=== PATIENT | male | born 1960 | race Caucasian/White ===

== ENCOUNTER 2016-09-22 07:12 | Day surgery (SDC) | payer BC ==
[2016-09-07 12:46] LABS: HEMATOCRIT 48.3 % (37.9-51.0); HEMOGLOBIN 16.8 g/dL (13.5-17.0); HGB HCT DIFFERENCE 2.1; MEAN CORPUSCULAR HEMOGLOBIN 31.3 pg (27.0-33.4); MEAN CORPUSCULAR HGB CONC 34.7 g/dL (32.0-36.0); MEAN CORPUSCULAR VOLUME 90 fl (80-97); RED BLOOD COUNT 5.36 10^6/uL (4.35-5.55); RED CELL DISTRIBUTION WIDTH 13.6 % (11.5-14.0); WHITE BLOOD COUNT 7.3 10^3/uL (4.0-10.5)
[2016-09-22] MEDS ORDERED: GLYCOPYRROLATE INJ 0.4 MG/2 ML VIAL ONE (07:18)
[2016-09-22] MEDS ORDERED: ONDANSETRON HCL INJ/PF 4 MG/2 ML SDV ONE (07:18)
[2016-09-22] MEDS ORDERED: FLUMAZENIL INJ 0.5 MG/5 ML VIAL IV ONE (07:19)
[2016-09-22] MEDS ORDERED: NALOXONE HCL INJ/PF 0.4 MG/1 ML SDV ONE (07:19)
[2016-09-22] MEDS ORDERED: GLUCAGON,HUMAN RECOMB 1 MG INJ ONE (07:19)
[2016-09-22] MEDS ORDERED: EPINEPHRINE INJ 1 MG/10 ML DISP.SYRIN ONE (07:19)
[2016-09-22] MEDS: MIDAZOLAM 2 MG/2 ML INJ ONE ×3 (08:01→08:09)
[2016-09-22] MEDS: FENTANYL CITRATE INJ/PF 100 MCG/2 ML AMPUL ONE ×2 (08:03→08:07)
--- NOTE | 2016-09-22 08:51 | Operative Report ---
Operative Report DATE OF SURGERY: 09/22/16 PREOPERATIVE DIAGNOSIS: 1. Personal history of colon polyps. 2. Family history of colon carcinoma POSTOPERATIVE DIAGNOSIS: Same with 1. Scattered diverticulosis. 2. Left colon pedunculated polyp. 3. Cecal lesion of undetermined significance OPERATION: 1. Total colonoscopy to cecum. 2. cold forceps biopsy of cecal lesion. 3. Left colon polypectomy SURGEON: ALECIA CANDELARIO ANESTHESIA: Moderate Sedation TISSUE REMOVED OR ALTERED: Polyp and mucosal biopsy COMPLICATIONS: None ESTIMATED BLOOD LOSS: none INTRAOPERATIVE FINDINGS: See below PROCEDURE: Obtaining informed consent the patient was taken from the preoperative holding area to the main endoscopy suite where monitoring devices were attached to the patient. Plan and surgical timeout were conducted The patient was placed in the left lateral decubitus position with knees to chest. A perianal examination was performed. There was no visible or palpable anorectal pathology. Sphincter tone was felt to be normal. The flexible pediatric colonoscope was advanced through the anal rectal canal, all the way to the cecum. Utilization of the cecum was achieved and the ileocecal valve, the appendiceal orifice and transillumination of the anterior abdominal wall. This was an excellent study on the well-prepped bowel. At the appendiceal orifice was an area of mucosal abnormality or cold this area possibly 1 cm to 2 cm in size was consistent with hypertrophied mucosa ; there was no evidence of ulcer, bleeding or pedunculated tissue. We did take a single cold forceps biopsy of the area. Photos were taken. The colonoscope was withdrawn slowly and methodically checked and the mucosa carefully. There was no evidence of tumor, stricture, bleeding ; there was approximately 1.2 cm polyp in the left colon, thin stalk, pedunculated; this polyp was removed using an air technique, medium heat strength. The specimen was retrieved by extracting the scope with the specimen on its tip. The specimen was labeled as left colon lesion and sent to pathology as same. We reinserted the pediatric colonoscope all the way to this point and found no evidence of bleeding. There were scattered diverticulosis of the right and left colon. The scope was slowly withdrawn through the anal rectal canal. It was retroflexed and minimal internal hemorrhoids visualized. Complete visualization of the rectum was achieved with photodocumentation. The scope was withdrawn to the patient's anus. The patient tolerated the procedure well and was taken to the recovery area in stable condition. We'll await the final pathology report; patient will likely be a candidate for surveillance colonoscopy in 3 years.
--- NOTE | 2016-09-22 08:52 | PDOC DISCHARGE SUMMARY ---
Discharge Summary (SDC) - Discharge Final Diagnosis: 1. Colon polyp left side 2. Cecal lesion of undetermined significance 3. Status post complete colonoscopy with polypectomy and mucosal biopsy. Date of Surgery: 09/22/16 Discharge Date: 09/22/16 Condition: Good Treatment or Instructions: [facility] [address] [address] POST ENDOSCOPY DISCHARGE INSTRUCTIONS 1. Diet: Start clear liquids that a regular diet as tolerated. 2. Resume all preoperative medications. All oral anticoagulants and aspirins can be resumed 24 hours after procedure. 3. If a polypectomy was performed some bleeding per rectum may occur. This should stop within 3 days. If not, please contact the office. 4. If you had a colonoscopy you may experience some bloating and delayed return of normal bowel function for several days, your regular bowel movement pattern should resume within a week. 5. Please contact [facility] at to make an appointment with Dr. Rodrigues for 1 to 3 weeks following procedure. 6. If you have any questions or concerns regarding your care,treatment plan or follow up, please contact our office. 7. Per clinical guidelines we recommend you undergo a repeat colonoscopy in 3 _ years. Discharge Diet: As Tolerated Discharge Activity: Activity As Tolerated Home Care Assistance: None Needed Report the Following to Your Physician Immediately: Shortness of Breath, Increase in Pain, Fever over 101 Degrees
[2016-09-22 10:48] VITALS: BP 111/76
== END 2016-09-22 10:00 | disposition home or self-care (01) ==
LOC: END 07:12
PROVIDERS: ATTEND Surgery
PROC: 0DBG8ZX Excision of Left Large Intestine, Via Natural or Artificial Opening Endoscopic, Diagnostic (ICD-10-PCS; principal; 2016-09-22 07:30)
PROC: 0DBH8ZX Excision of Cecum, Via Natural or Artificial Opening Endoscopic, Diagnostic (ICD-10-PCS; 2016-09-22 07:30)
DX: K63.5 Polyp of colon (principal); K57.30 Diverticulosis of large intestine without perforation or abscess without bleeding; K62.5 Hemorrhage of anus and rectum; E78.00 Pure hypercholesterolemia, unspecified; K76.0 Fatty (change of) liver, not elsewhere classified; G40.909 Epilepsy, unspecified, not intractable, without status epilepticus; Z88.0 Allergy status to penicillin; Z79.899 Other long term (current) drug therapy; Z87.11 Personal history of peptic ulcer disease; Z80.0 Family history of malignant neoplasm of digestive organs
CPT/HCPCS: 45380; 45385; 36415; 85027; 88305 ×2; J2250; J3010; J0171; J1610; J2310; J2405; J3490

== ENCOUNTER → 2016-10-24 | Outpatient (CLI) | payer BC | LOC: RAD 18:40 | PROVIDERS: ATTEND Specialist | DX: R56.9 Unspecified convulsions (principal) | CPT/HCPCS: 70553; A9577 ==

== ENCOUNTER 2016-10-27 07:13 | Day surgery (SDC) | payer BC ==
[2016-10-27] MEDS ORDERED: ONDANSETRON HCL INJ/PF 4 MG/2 ML SDV ONE (07:21)
[2016-10-27] MEDS ORDERED: GLYCOPYRROLATE INJ 0.4 MG/2 ML VIAL ONE (07:21)
[2016-10-27] MEDS ORDERED: FENTANYL CITRATE INJ/PF 100 MCG/2 ML AMPUL ONE (07:22)
[2016-10-27] MEDS ORDERED: GLUCAGON,HUMAN RECOMB 1 MG INJ ONE (07:22)
[2016-10-27] MEDS ORDERED: FLUMAZENIL INJ 0.5 MG/5 ML VIAL IV ONE (07:22)
[2016-10-27] MEDS ORDERED: EPINEPHRINE INJ 1 MG/10 ML DISP.SYRIN ONE (07:22)
[2016-10-27] MEDS ORDERED: NALOXONE HCL INJ/PF 0.4 MG/1 ML SDV ONE (07:22)
[2016-10-27] MEDS: MIDAZOLAM 2 MG/2 ML INJ ONE ×3 (07:28→07:34)
--- NOTE | 2016-10-27 08:00 | PDOC DISCHARGE SUMMARY ---
Discharge Summary (SDC) - Discharge Final Diagnosis: gastritis, gastric polyp Date of Surgery: 10/27/16 Discharge Date: 10/27/16 Condition: Good Treatment or Instructions: [facility] [place] [address] POST ENDOSCOPY DISCHARGE INSTRUCTIONS 1. Diet: Start clear liquids that a regular diet as tolerated. 2. Resume all preoperative medications. All oral anticoagulants and aspirins can be resumed 24 hours after procedure. 3. If a polypectomy was performed some bleeding per rectum may occur. This should stop within 3 days. If not, please contact the office. 4. If you had a colonoscopy you may experience some bloating and delayed return of normal bowel function for several days, your regular bowel movement pattern should resume within a week. 5. Please contact [facility] at to make an appointment with Dr. Rodrigues for 1 to 3 weeks following procedure. 6. If you have any questions or concerns regarding your care,treatment plan or follow up, please contact our office. Discharge Diet: As Tolerated Discharge Activity: Activity As Tolerated Home Care Assistance: None Needed Report the Following to Your Physician Immediately: Shortness of Breath, Increase in Pain, Unusual Bleeding
[2016-10-27 09:06] VITALS: BP 118/75
--- NOTE | 2016-10-27 09:28 | OPERATIVE REPORT E ---
Operative Report NAME: GERMAN LÓPEZ : 1960 AGE: 56Y DATE OF SURGERY: 10/27/2016 ROOM: PREOPERATIVE DIAGNOSES: 1. BLOATING. 2. ABDOMINAL PAIN. 3. HISTORY OF PEPTIC ULCER DISEASE. POSTOPERATIVE DIAGNOSES: 1. BLOATING. 2. ABDOMINAL PAIN. 3. HISTORY OF PEPTIC ULCER DISEASE. 4. DIFFUSE GASTRITIS AND GASTRIC POLYP. OPERATION: 1. Esophagogastroduodenoscopy. 2. Gastric polypectomy. 3. Greater curvature of the stomach mucosal biopsy. SURGEON: ALECIA CANDELARIO M.D. ANESTHESIA: Conscious sedation. COMPLICATIONS: None. ESTIMATED BLOOD LOSS: Scant. DRAINS: None. TISSUE REMOVED OR ALTERED: One polyp and one mucosal biopsy. FINDINGS: See below. SUMMARY OF PROCEDURE: The patient was taken from the preoperative area to the main endoscopy suite, where monitoring devices were attached. Conscious sedation was induced using fentanyl and Versed. Surgical plan and surgical time-out were conducted. Oral mouthpiece was inserted, and the flexible adult upper endoscope was advanced into the oropharynx, down the esophagus, through the stomach, into the duodenum. This was well tolerated by the patient. The duodenum was essentially unremarkable. There was no evidence of tumor, polyp, bleeding or stricture. The scope was brought back through the pylorus. The stomach was significant for diffuse gastritis proximally and distally particularly in the antrum. Photos were taken. One biopsy was taken of the greater curve of the stomach and sent for CLOtesting. On the lesser curvature was a small gastric polyp which was photographed and biopsied using the cold forceps device. Specimen was sent to pathology as gastric polyp. Bleeding was minimal. The scope was brought back through the patient's GE junction. The Z-line was at approximately 40 cm from the incisors. There was no evidence of stricture. The scope was brought through the length of the esophagus. There was no evidence of varices or ulceration. The upper esophagus was grossly unremarkable. The hypopharynx showed no pathology. The scope was withdrawn from the patient's oropharynx. He tolerated the procedure well. DICTATING PHYSICIAN: ALECIA CANDELARIO M.D. [id number] PHY#: [id number] ID: [id number] JOB#: [id number] ACCT: [id number] cc:ALECIA CANDELARIO M.D. >
== END 2016-10-27 09:00 | disposition home or self-care (01) ==
LOC: END 07:13
PROVIDERS: ATTEND Surgery
PROC: 0DB68ZX Excision of Stomach, Via Natural or Artificial Opening Endoscopic, Diagnostic (ICD-10-PCS; principal; 2016-10-27 08:15)
DX: K29.50 Unspecified chronic gastritis without bleeding (principal); K31.7 Polyp of stomach and duodenum; Z87.11 Personal history of peptic ulcer disease; Z88.0 Allergy status to penicillin; Z86.010 Personal history of colon polyps; Z80.0 Family history of malignant neoplasm of digestive organs; G47.30 Sleep apnea, unspecified; K62.5 Hemorrhage of anus and rectum; E78.00 Pure hypercholesterolemia, unspecified; K76.0 Fatty (change of) liver, not elsewhere classified; Z79.899 Other long term (current) drug therapy
CPT/HCPCS: 43239; 88342 ×2; 88305 ×2; J2250; J3010; J0171; J1610; J2310; J2405; J3490

== ENCOUNTER → 2018-06-15 | Outpatient (CLI) | payer BC ==
--- NOTE | 2018-06-15 16:21 | XCELERA REPORT ---
[address] [facility] [address] Lower Extremity Venous Evaluation Procedure: Color flow and duplex imaging bilaterally of the veins of the lower extremities as well as the Common Femoral veins. Right Sided Venous Evaluation Normal vessel filling wall to wall, compression and augmentation as well as Colour flow down to the infrageniculate veins. Left Sided Venous Evaluation Normal vessel filling wall to wall, compression and augmentation as well as Colour flow down to the infrageniculate veins. Interpretation Summary No duplex evidence of DVT or obstruction in the bilateral lower extremities. Name: GERMAN LÓPEZ Age: 58 yrs Gender: Male : 1960 Patient Status: Outpatient Patient Location: Study Date: 06/15/2018 09:19 AM Reason For Study: VARICOSE VEINS Ordering Physician: DECLAN WALLS Performed By: Selina Smith : DECLAN WALLS > Marvin Abdi
== END ==
LOC: SP 08:37
PROVIDERS: ATTEND Internal Medicine
DX: M79.662 Pain in left lower leg (principal); M79.661 Pain in right lower leg; M79.89 Other specified soft tissue disorders
CPT/HCPCS: 93970

== ENCOUNTER → 2018-07-12 | Outpatient (CLI) | payer BC | LOC: OD 08:10 | PROVIDERS: ATTEND Internal Medicine | DX: R19.7 Diarrhea, unspecified (principal) | CPT/HCPCS: 87493 ==

== ENCOUNTER → 2019-08-21 | Outpatient (CLI) | payer BC ==
--- NOTE | 2019-08-21 09:12 | RADIOLOGY REPORT (SQ) ---
EXAM DESCRIPTION: MRI LUMBAR SPINE WITHOUT COMPLETED DATE/TIME: 08/21/2019 8:15 am REASON FOR STUDY: OTHER INTERVERTEBRAL DISC DEGENERATION, LUMBOSACRAL REGION (M51.37) M51.37 OTHER INTERVERTEBRAL DISC DEGENERATION, LUMBOSACRAL R COMPARISON: None. TECHNIQUE: Sagittal and Axial imaging includes T1, T2, STIR and gradient echo sequences. Coronal T2/ HASTE imaging. LIMITATIONS: None. FINDINGS: VISUALIZED UPPER ABDOMEN: There is a small right renal cyst. SEGMENTATION: No transitional anatomy. The lowest well-developed disc space is labeled L5-S1. ALIGNMENT: Anatomic. VERTEBRAE: Intact. BONE MARROW: Modic type 2 changes at L3-L4. Modic type 3 changes at L4-L5. DISC SIGNAL: Loss of height and signal throughout the lumbar spine. Prominent Schmorl's node involvi ng the superior endplate of L5. POSTERIOR ELEMENTS: Generally intact. No pars defect evident. HARDWARE: None in the spine. CORD AND CONUS: Normal in size and signal intensity. Conus at the appropriate level. SOFT TISSUES: No aortic aneurysm seen. No bulky retroperitoneal adenopathy or mass. No paraspinal mas s or fluid. L1-L2: No significant spinal stenosis or exit foraminal stenosis. L2-L3: No significant spinal stenosis or exit foraminal stenosis. L3-L4: Disc space narrowing with annular disc bulging. Mild central stenosis. There is bilateral fa cet arthropathy with asymmetric narrowing of the right neural foramina. L4-L5: Annular disc bulging. Bilateral facet arthropathy. No significant central stenosis. There i s asymmetric narrowing of the right neural foramina. L5-S1: Annular bulge. No central stenosis or foraminal narrowing. LOWER THORACIC: Incompletely imaged. No stenosis seen. SACRUM: Visualized upper sacrum intact. OTHER: No other significant findings. IMPRESSION: 1. Multilevel spondylosis with Modic type 2 changes at L3-L4 and type 3 changes at L4-L5 . 2. Mild central stenosis at L3-L4 in asymmetric narrowing of the right neural foramina secondary to annular disc bulging and facet arthropathy. 3. Asymmetric narrowing of the right neural foramina at L4-L5 secondary to annular disc bulging and facet arthropathy. TECHNICAL DOCUMENTATION: JOB ID: [id number] 2010 [employer]- All Rights Reserved Reading location - IP/workstation name: [email or web address]
== END ==
LOC: RAD 07:21
PROVIDERS: ATTEND Internal Medicine
DX: M51.37 Other intervertebral disc degeneration, lumbosacral region (principal)
CPT/HCPCS: 72148

== ENCOUNTER 2020-03-13 21:15 | Emergency (ER) | payer BC ==
[2020-03-13 21:36] VITALS: BP 126/86
--- NOTE | 2020-03-13 21:37 | ER Document Report ---
ED Medical Screen (RME) - General Chief Complaint: Epigastric Pain Stated Complaint: EPIGASTRIC PAIN Time Seen by Provider: 03/13/20 21:27 Primary Care Provider: DECLAN WALLS MD [Primary Care Provider] - Follow up as needed Mode of Arrival: Ambulatory Information source: Patient Notes: 59-year-old male presented to ED for epigastric pain. He states his had had it off and on for couple months. He states he did have an ultrasound and they told him he had gallstones but he has been "stubborn and not getting his gallbladder out "he does have a history of elevated cholesterol and he has had several colonoscopies in the past otherwise no past medical history. He is alert oriented respirations regular nonlabored speaking in full sentences. He does not smoke drink or use any drugs. Patient does not have any Enciso sign at this time. I have greeted and performed a rapid initial assessment of this patient. A comprehensive ED assessment and evaluation of the patient, analysis of test results and completion of medical decision making process will be conducted by an additional ED providers. TRAVEL OUTSIDE OF THE [place] IN LAST 30 DAYS: No - Related Data Allergies/Adverse Reactions: Penicillins Allergy (Mild, Verified 10/27/16 07:09) RASH AND HIVES adhesive Allergy (Verified 10/27/16 07:09) TEARS SKIN Past Medical History - Past Medical History Cardiac Medical History: Denies: Hx Coronary Artery Disease, Hx Heart Attack, Hx Hypertension Pulmonary Medical History: Denies: Hx Asthma, Hx Bronchitis, Hx COPD, Hx Pneumonia Neurological Medical History: Reports: Hx Seizures - SIEZURE PADS APPLIED. Denies: Hx Cerebrovascular Accident GI Medical History: Denies: Hx Hepatitis, Hx Hiatal Hernia Musculoskeltal Medical History: Denies Hx Arthritis Infectious Medical History: Denies: Hx Hepatitis Past Surgical History: Denies: Hx Open Heart Surgery, Hx Pacemaker - Immunizations Hx Diphtheria, Pertussis, Tetanus Vaccination: Yes Physical Exam - Vital signs Vitals: Temp Pulse Resp BP Pulse Ox 98.3 F 84 18 126/86 H 96 03/13/20 21:35 03/13/20 21:35 03/13/20 21:35 03/13/20 21:35 03/13/20 21:35 Course - Vital Signs Vital signs: Temp Pulse Resp BP Pulse Ox 98.3 F 84 18 126/86 H 96 03/13/20 21:35 03/13/20 21:35 03/13/20 21:35 03/13/20 21:35 03/13/20 21:35 Doctor's Discharge - Discharge Referrals: DECLAN WALLS MD [Primary Care Provider] - Follow up as needed
--- NOTE | 2020-03-13 23:18 | RADIOLOGY REPORT (SQ) ---
EXAM DESCRIPTION: Right upper quadrant abdominal ultrasound CLINICAL HISTORY: 59 years Male; Epigastric pain history of gallstones TECHNIQUE: Abdominal ultrasound was performed. COMPARISON: Abdominal ultrasound 01/25/2016 FINDINGS: Pancreas: Pancreas is obscured by overlying bowel gas and is not seen. Liver: The liver is mildly enlarged measuring 18.2 cm. There is diffuse increased echogenicity consistent with fatty infiltration. The main portal vein is not well seen.. Gallbladder: Gallbladder wall is not well seen but appears to be approximately 3 mm. Gallstones are noted. No sonographic Enciso's. No pericholecystic fluid. Common bile duct: 5.5 mm. Right kidney: The kidney measures 9.3 cm and has normal echogenicity.. No hydronephrosis. Aorta:Visualized portions are within normal limits. IVC: Visualized portions are within normal limits. IMPRESSION: Cholelithiasis. No evidence of acute cholecystitis. Fatty infiltration of the liver.
[2020-03-13 23:24] LABS: ABSOLUTE EOSINOPHILS # (AUTO) 0.2 10^3/uL (0.0-0.6); ABSOLUTE LYMPHOCYTES (AUTO) 1.6 10^3/uL (0.5-4.7); ABSOLUTE MONOCYTES (AUTO) 1.1 10^3/uL (0.1-1.4); ABSOLUTE NEUT (AUTO) 3.7 10^3/uL (1.7-8.2); BASOPHILS % (AUTO) 0.7 % (0-2); EOSINOPHILS % (AUTO) 2.7 % (0-6); HEMATOCRIT 44.5 % (37.9-51.0); HEMOGLOBIN 15.5 g/dL (13.5-17.0); LYMPHOCYTES % (AUTO) 24.2 % (13-45); MEAN CORPUSCULAR HEMOGLOBIN 31.5 pg (27.0-33.4); MEAN CORPUSCULAR HGB CONC 34.8 g/dL (32.0-36.0); MEAN CORPUSCULAR VOLUME 91 fl (80-97); MONOCYTES % (AUTO) 16.4 % (3-13); PLATELET COUNT 150 10^3/uL (150-450); RED BLOOD COUNT 4.91 10^6/uL (4.35-5.55); RED CELL DISTRIBUTION WIDTH 13.7 % (11.5-14.0); TOTAL CELLS COUNTED % (AUTO) 100 %; WHITE BLOOD COUNT 6.6 10^3/uL (4.0-10.5)
[2020-03-13 23:34] LABS: APPEARANCE,URINE CLEAR; BILIRUBIN,URINE NEGATIVE (NEGATIVE); COLOR,URINE YELLOW; GLUCOSE, URINE NEGATIVE (NEGATIVE); KETONES,URINE NEGATIVE (NEGATIVE); LEUKOCYTE ESTERASE,URINE NEGATIVE (NEGATIVE); NITRITE,URINE NEGATIVE (NEGATIVE); PROTEIN,URINE NEGATIVE (NEGATIVE); URINE SPECIFIC GRAVITY 1.011
[2020-03-13 23:42] LABS: ALBUMIN 4.4 g/dL (3.5-5.0); ALKALINE PHOSPHATASE 76 U/L (38-126); ANION GAP 9 (5-19); ASPARTATE AMINO TRANSFERASE 193 U/L (17-59); BILIRUBIN,DIRECT 0.6 mg/dL (0.0-0.4); BLOOD UREA NITROGEN 13 mg/dL (7-20); CALCIUM 9.3 mg/dL (8.4-10.2); CARBON DIOXIDE 28 mmol/L (22-30); CHLORIDE 102 mmol/L (98-107); GLUCOSE 112 mg/dL (75-110); NEONATAL BILIRUBIN RESULT 0.4 mg/dL (0.1-1.1)
== END 2020-03-14 01:52 | disposition left against medical advice (07) ==
LOC: ER 21:15
DX: R10.13 Epigastric pain (principal)
CPT/HCPCS: 36415; 76705; 80053; 81001; 83690; 85025; 99281